=== PATIENT | female | born 1945 | race Hispanic/Latino ===

== ENCOUNTER 2016-05-31 06:21 | Day surgery (SDC) | payer BC, MEDICARE ==
[2016-05-31] MEDS ORDERED: NACL 0.9% 500 ML 500 ML IV SCH (08:00)
[2016-05-31 08:01] LABS: Hematocrit 38.8 % (30.3-42.9); Hemoglobin 13.1 gm/dl (10.1-14.3); Mean Corpuscular HGB Conc 34 % (30-34); Mean Corpuscular Hemoglobin 31 pg (28-32); Mean Corpuscular Volume 93 fl (79-97); Platelet Count 262 K/mm3 (140-440); Red Blood Count 4.18 M/mm3 (3.65-5.03); Red Cell Distribution Width 13.4 % (13.2-15.2); White Blood Count 5.5 K/mm3 (4.5-11.0)
[2016-05-31] MEDS ORDERED: LOVENOX SUB-Q ONE (08:07)
[2016-05-31 08:13] LABS: INR 0.98 (0.87-1.13); Partial Thromboplastin Time 27.8 Sec. (24.2-36.6)
[2016-05-31 08:20] LABS: Anion Gap 14 mmol/L; BUN/Creatinine Ratio 34.28; Blood Urea Nitrogen 24 mg/dL (7-17); Calcium 8.8 mg/dL (8.4-10.2); Carbon Dioxide 28 mmol/L (22-30); Chloride 103.1 mmol/L (98-107); Glucose 104 mg/dL (65-100); Potassium 4.6 mmol/L (3.6-5.0); Sodium 140 mmol/L (137-145)
[2016-05-31] MEDS ORDERED: SUBLIMAZE IV ONE (08:24)
[2016-05-31] MEDS ORDERED: VERSED IV ONE (08:24)
[2016-05-31] MEDS ORDERED: HURRICAINE ONE 20% TOPICAL SPRAY MM (08:32)
[2016-05-31] MEDS ORDERED: HURRICAINE ONE 20% TOPICAL SPRAY MM NR (09:00)
[2016-05-31 09:03] VITALS: BP 145/90
--- NOTE | 2016-05-31 11:50 | Short Stay Summary ---
Short Stay Documentation Date of service: 05/31/16 - History H&P: obtained from office - Allergies and Medications Current Medications: Allergies No Known Allergies Allergy (Verified 05/31/16 07:11) Home Medications Medication Instructions Recorded Confirmed Last Taken Type Apixaban [Eliquis] 5 mg PO BID 05/31/16 05/31/16 05/29/16 History Atenolol [Atenolol] 25 mg PO DAILY 05/31/16 05/31/16 05/30/16 History Citalopram Hydrobromide 20 mg PO DAILY 05/31/16 05/31/16 05/30/16 History [Citalopram HBr] Clopidogrel Bisulfate [Clopidogrel] 75 mg PO DAILY 05/31/16 05/31/16 05/30/16 History Lansoprazole [Prevacid] 15 mg PO QDAY 05/31/16 05/31/16 05/30/16 History Meloxicam [Meloxicam] 7.5 mg PO DAILY 05/31/16 05/31/16 05/30/16 History Multivitamin-Min/Iron/FA/Vit K 1 dose PO DAILY 05/31/16 05/31/16 05/30/16 History [Multi For Her Softgel] Pravastatin (Nf) [Pravachol] 40 mg PO DAILY 05/31/16 05/31/16 05/30/16 History Zolpidem [Ambien] 10 mg PO QHS 05/31/16 05/31/16 05/30/16 History Active Medications Benzocaine (Hurricaine One 20% Topical [place]) 3 spray MM PREOP NR Stop: 05/31/16 16:00 Last Admin: 05/31/16 08:55 Dose: 3 spray Sodium Chloride (Nacl 0.9% 500 Ml) 500 mls @ 50 mls/hr IV DIRECT OBIE Last Admin: 05/31/16 08:21 Dose: 50 mls/hr - Physical exam General appearance: no acute distress Integumentary: no rash HEENT: Atraumatic Lungs: Clear to auscultation Breasts: deferred Heart: Other Gastrointestinal: normal Female Genitourinary: deferred Rectal Exam: deferred Extremities: no ischemia Neurological: Normal gait - Brief post op/procedure progress note Date of procedure: 05/31/16 Pre-op diagnosis: AFIB Post-op diagnosis: same Procedure: HELIO guided CV Anesthesia: MAC Findings: See report Surgeon: RENATO BRIGHT Estimated blood loss: none Pathology: none Condition: stable - Hospital course Hospital course: Uneventful - Disposition Condition at discharge: Good Disposition: DISCHARGED TO HOME OR SELFCARE Short Stay Discharge Plan Activity: advance as tolerated Weight Bearing Status: Weight Bear as Tolerated Diet: low fat, low cholesterol, low salt Follow up with: MIA ARRINGTON MD [Staff Physician] - 7 Days BENITO MARTIN MD [Primary Care Provider] - 7 Days Forms: HELIO Discharge Form
--- NOTE | 2016-05-31 12:21 | TEE Report ---
Transesophageal Echocardiogram Indication: A-fib Conclusions *Mild global hypokinesis of the left ventricle is observed. *The estimated ejection fraction is 45-50%. *The left atrium is moderate to severely dilated. *There is no thrombus visualized in the left atrial appendage. *The right ventricular global systolic function is moderately reduced. *The right atrium is mildly dilated. *There is mild aortic regurgitation. *There is mild mitral regurgitation. *There is mild tricuspid regurgitation. *The flow patterns of the pulmonary veins were consistent with systolic blunting. Findings Procedure Info: The study quality is good. HELIO Procedures: The posterior pharynx was anesthetized. The patient was placed in a left lateral recumbent position and a plastic bite block was inserted into the mouth. IV sedation was administered. A transesophageal echocardiography probe was inserted into the posterior pharynx and the esophagus was then intubated without difficulty. Multiple views were then obtained from the upper, mid and lower esophagus and the gastric fundus. The scope was rotated 180 degrees and the aorta was visualized. The scope withdrawn under continuous suction. The patient tolerated the procedure well without any apparent complications. The procedure and risk were explained to the patient who consented to the study. Left Ventricle: Mild global hypokinesis of the left ventricle is observed. The estimated ejection fraction is 45-50%. Left Atrium: The left atrium is moderate to severely dilated. There is no thrombus visualized in the left atrial appendage. Right Ventricle: The right ventricular cavity size is normal. The right ventricular global systolic function is moderately reduced. Right Atrium: The right atrium is mildly dilated. No atrial septal defected is demonstrated by color Doppler and agitated saline contrast. Aortic Valve: The aortic valve is trileaflet. There is mild aortic regurgitation. Mitral Valve: The mitral valve leaflets are mildly thickened. There is mild mitral regurgitation. Tricuspid Valve: There is mild tricuspid regurgitation. Pulmonic Valve: The pulmonic valve appears normal in structure and function. Pericardium: There is no pericardial effusion. Aorta: The aorta appears normal. Venous: The flow patterns of the pulmonary veins were consistent with systolic blunting.
--- NOTE | 2016-05-31 22:52 | Procedure Note ---
CARDIOVERSION REPORT ORDERING PHYSICIAN: Arianna Parr MD INDICATION FOR PROCEDURE: Symptomatic persistent atrial fibrillation. DESCRIPTION OF PROCEDURE: After obtaining written consent and after documenting the absence of left atrial appendage clot, the patient was moderately sedated with 4 mg of Versed and 100 mcg of fentanyl. A 200 joules synchronized shock was administered with successful conversion from atrial fibrillation into sinus bradycardia. IMPRESSION: Successful cardioversion from atrial fibrillation to sinus bradycardia after a 200 joules synchronized shock. RECOMMENDATION: Continue current medications including amiodarone and Eliquis, follow up with the referring occupational physician. JOB# [id number] MYRIAM/EUGENIA
== END 2016-05-31 12:20 | disposition home or self-care (01) ==
LOC: OPU 06:21 → EDSTATUS 08:30 → OPU 12:20
PROVIDERS: ATTEND Internal Medicine Cardiovascular Disease
DX: I48.0 Paroxysmal atrial fibrillation (principal); I08.3 Combined rheumatic disorders of mitral, aortic and tricuspid valves; I45.10 Unspecified right bundle-branch block; I11.0 Hypertensive heart disease with heart failure; I50.9 Heart failure, unspecified; F41.9 Anxiety disorder, unspecified; I25.10 Atherosclerotic heart disease of native coronary artery without angina pectoris; Z95.1 Presence of aortocoronary bypass graft; Z83.49 Family history of other endocrine, nutritional and metabolic diseases; E78.5 Hyperlipidemia, unspecified
CPT/HCPCS: 36415; 80048; 85027; 85610; 85730; 92960; 93312; 93320; 93325; 96372; J1650; J2250; J3010; J7040

== ENCOUNTER 2020-03-23 09:07 | Day surgery (SDC) | payer BC, MEDICARE ==
[2020-03-23] MEDS ORDERED: ASPIRIN 81 MG TAB CHEW PO SCH (10:00)
[2020-03-23 10:20] LABS: Basophils % (Auto) 0.4 % (0.0-1.8); Eosinophils # (Auto) 0.3 K/mm3 (0.0-0.4); Eosinophils % (Auto) 5.6 % (0.0-4.3); Hematocrit 40.6 % (30.3-42.9); Hemoglobin 13.3 gm/dl (10.1-14.3); Lymphocytes # (Auto) 1.7 K/mm3 (1.2-5.4); Lymphocytes % (Auto) 29.6 % (13.4-35.0); Mean Corpuscular HGB Conc 33 % (30-34); Mean Corpuscular Volume 89 fl (79-97); Monocytes # (Auto) 0.5 K/mm3 (0.0-0.8); Monocytes % (Auto) 8.1 % (0.0-7.3); Platelet Count 291 K/mm3 (140-440); Red Blood Count 4.54 M/mm3 (3.65-5.03); Red Cell Distribution Width 14.1 % (13.2-15.2)
[2020-03-23 10:27] LABS: INR 0.95 (0.87-1.13)
[2020-03-23] MEDS: SODIUM CHLORIDE 0.9% 500 ML 500 ML IV SCH ×2 (10:45→11:50)
[2020-03-23] MEDS ORDERED: HEPARIN/NS 5000 UNIT/500ML 1,000 ML IR ONE (11:05)
[2020-03-23] MEDS ORDERED: HEPARIN 10,000 UNITS/10 ML VIAL ONE (11:05)
[2020-03-23] MEDS ORDERED: VERAPAMIL 5 MG/2 ML INJ ONE (11:06)
[2020-03-23] MEDS ORDERED: NITROGLYCERIN SYRINGE 3 ML ONE (11:06)
[2020-03-23 11:22] LABS: Blood Urea Nitrogen 18 mg/dL (7-17); Calcium 9.3 mg/dL (8.4-10.2); Hemolysis Index 5
[2020-03-23 11:27] LABS: BUN/Creatinine Ratio 36
[2020-03-23] MEDS: fentaNYL 100 MCG/2 ML INJ ONE ×3 (11:50→12:06)
[2020-03-23] MEDS: LIDOCAINE (2%) 20 MG/1 ML VIAL 20 ML MDV INFILTRATI ONE ×2 (11:50→12:05)
[2020-03-23] MEDS: MIDAZOLAM 2 MG/2 ML INJ ONE ×3 (11:50→12:06)
[2020-03-23] MEDS ORDERED: HYDROcodone/ACETAMINOPHEN 5-325 MG TAB PO PRN (13:23)
[2020-03-23] MEDS ORDERED: traMADol 50 MG TAB PO PRN (13:23)
[2020-03-23] MEDS ORDERED: SODIUM CHLORIDE 0.9% 1000 ML 1,000 ML IV SCH (13:30)
--- NOTE | 2020-03-23 13:38 | Discharge Summary ---
Short Stay Discharge Plan Activity: advance as tolerated Weight Bearing Status: Partial Weight Bearing Diet: low fat, low cholesterol, low salt, diabetic Wound: keep clean and dry Special Instructions: no heavy lifting (3 DAYS) Follow up with: BENITO MARTIN MD [Primary Care Provider] - 7 Days MIA ARRINGTON MD [Staff Physician] - 7 Days
--- NOTE | 2020-03-23 14:26 | Cardiac Catherization Report ---
REASON FOR PROCEDURE: A 75-year-old woman with multivessel coronary artery disease, status post remote 2-vessel coronary artery bypass. She presented with unstable angina, and recommended for a cardiac catheterization. PROCEDURES: 1. Left heart catheterization. 2. Selective left and right coronary angiography. 3. Angiography of the left internal mammary artery graft. 4. Angiography of the saphenous vein graft. 5. Left ventricular angiography. 6. Sedation time, start 1202 hours, end 1224 hours. DESCRIPTION OF PROCEDURE: The patient was prepped and draped in a sterile fashion after informed consent. The right femoral artery was entered using Seldinger technique followed by placement of a 6-Fijian sheath. Selective left and right coronary angiography was performed using #4 right and left Barrington catheters. The right Barrington was used for angiography of the saphenous vein graft. We then exchanged for left internal mammary artery catheter for the left internal mammary artery graft. Finally, a pigtail catheter was used for left ventricular angiography. The catheters were removed, sheath removed, and hemostasis achieved using manual compression. The patient was returned to the postprocedure unit in stable condition. There were no complications. FINDINGS: HEMODYNAMICS: Left ventricular end-diastolic pressure was 34, following coronary angiography. Ascending aortic pressure was 162/67. There was no significant pressure gradient on pullback across the aortic valve. CORONARY ANGIOGRAPHY: There were mild irregularities of the proximal and mid left main coronary artery. There was a 95-99% stenosis of the distal left main, at the origin of the LAD, a large ramus intermedius and the circumflex arteries. Notably, a stent was also visible in the proximal LAD extending from its ostium. The proximal stent border was adjacent to the occlusive distal left main lesion. Otherwise, there was no forward flow into a completely occluded LAD. The left internal mammary artery graft to the LAD was patent with good anastomosis to the mid vessel and good distal runoff. There was diffuse moderate disease of the LAD beyond the graft insertion. The ramus intermedius was a fairly large vessel that contained an ostial, 80-90% stenosis adjacent to the distal left main stenosis previously described. The circumflex artery contained a long, 75% stenosis of its proximal AV groove segment, following which there was a large mid obtuse marginal, and the AV groove circumflex terminated in another large distal obtuse marginal. There were mild irregularities of the mid and distal segments of the circumflex system. The right coronary artery was a small caliber, but dominant vessel. The [place] vessel contained a long segment of severe disease in its mid portion, culminating in its subtotal occlusion just before the acute margin. There was some perfusion of the distal right coronary segments with right to right on bridging collaterals. The saphenous vein graft to the distal right coronary artery appeared patent, but appeared to contain diffuse moderate atherosclerosis throughout its proximal, mid, and distal segments. Left ventricular systolic function was mildly to moderately impaired, with ejection fraction 40-45%. CONCLUSIONS: 1. Severe 3-vessel coronary artery disease. 2. Patent left internal mammary artery graft to the left anterior descending. 3. Patent but diffusely diseased saphenous vein graft to the right coronary artery. 4. Severe, critical disease of the distal left main, feeding a large ramus intermedius and a large circumflex system. A previous stent in the mid obtuse marginal of the circumflex appears to remain patent. 5. [id number] left ventricular dysfunction, ejection fraction 40-45%. RECOMMENDATION: The patient will be considered for high risk coronary intervention to the bifurcation stenosis of the distal left main, to perfuse the circumflex system and the ramus intermedius. JOB# [id number] TAMANNA/EUGENIA
[2020-03-23 22:44] VITALS: BP 142/44
== END 2020-03-23 09:08 | disposition home or self-care (01) ==
LOC: CATHLABREC 09:07
PROVIDERS: ATTEND Internal Medicine Cardiovascular Disease
DX: I25.110 Atherosclerotic heart disease of native coronary artery with unstable angina pectoris (principal); E78.00 Pure hypercholesterolemia, unspecified; I48.91 Unspecified atrial fibrillation; I10 Essential (primary) hypertension; F41.9 Anxiety disorder, unspecified; Z98.890 Other specified postprocedural states; Z95.1 Presence of aortocoronary bypass graft; Z88.8 Allergy status to other drugs, medicaments and biological substances; Z79.899 Other long term (current) drug therapy; Z79.82 Long term (current) use of aspirin; Z86.2 Personal history of diseases of the blood and blood-forming organs and certain disorders involving the immune mechanism
CPT/HCPCS: 36415; 80048; 85025; 85610; 85730; 93005; 93459; 99156; C1894; J1644; J2250; J3010; J7040; Q9967